=== PATIENT | male | born 1995 | race American Indian/Alaskan Native ===

== ENCOUNTER 2017-01-04 13:31 | Emergency (ER) | payer SELFPAY ==
[2017-01-04 13:53] VITALS: BP 109/67
--- NOTE | 2017-01-04 15:53 | Emergency Department Report ---
ED Male HPI - General Chief complaint: Urogenital-Male Stated complaint: POSS STD Time Seen by Provider: 01/04/17 15:40 Source: patient Mode of arrival: Ambulatory Limitations: No Limitations - History of Present Illness Initial comments: Patient is a 21-year-old male who presents to ED with complaints of rectal pain for the past 2 days. Patient also reports that he was be checked for possible STDs. Denies any anal sex. Denies any dysuria, hematuria, urethral discharge or any other symptoms. MD Complaint: other (rectal pain) -: Sudden Radiation: none Severity: moderate Severity scale (0 -10): 7 Quality: aching Consistency: constant Improves with: none Worsens with: none denies other symptoms. denies: discharge, swelling, mass, rash, urinary retention, blood in urine, dysuria, fever, nausea/vomiting, incontinence - Related Data Previous Rx's Medication Instructions Recorded Last Taken Type Sulfamethoxazole/Trimethoprim 1 each PO BID #20 tablet 12/28/15 Unknown Rx [Bactrim DS TAB] Benzocaine [Americaine] 28 gm TP BID #1 oint...g. 01/04/17 Unknown Rx Hydrocortisone [Anucort-HC SUPPOS] 25 mg RC BID #20 supp.rect 01/04/17 Unknown Rx Allergies Allergy/AdvReac Type Severity Reaction Status Date / Time trazodone Allergy Swelling Verified 12/25/15 17:55 ED Review of Systems ROS: Stated complaint: POSS STD Other details as noted in HPI Constitutional: denies: chills, fever Eyes: denies: eye pain, eye discharge, vision change ENT: denies: ear pain, throat pain Respiratory: denies: cough, shortness of breath, wheezing Cardiovascular: denies: chest pain, palpitations Gastrointestinal: as per HPI, other (rectal pain ) Genitourinary: as per HPI. denies: urgency, dysuria, frequency, hematuria, discharge, testicular pain, testicular mass, other Skin: denies: rash, lesions Neurological: denies: headache, weakness, paresthesias Psychiatric: denies: anxiety, depression ED Past Medical Hx - Past Medical History Previous Medical History?: Yes Hx Psychiatric Treatment: Yes (bi-polar) - Surgical History Past Surgical History?: Yes Additional Surgical History: nasal surgery - Social History Smoking Status: Current Every Day Smoker - Medications Home Medications: Home Medications Medication Instructions Recorded Confirmed Last Taken Type Sulfamethoxazole/Trimethoprim 1 each PO BID #20 tablet 12/28/15 Unknown Rx [Bactrim DS TAB] Benzocaine [Americaine] 28 gm TP BID #1 oint...g. 01/04/17 Unknown Rx Hydrocortisone [Anucort-HC SUPPOS] 25 mg RC BID #20 supp.rect 01/04/17 Unknown Rx ED Physical Exam - General Limitations: No Limitations General appearance: alert, in no apparent distress - Head Head exam: Present: atraumatic, normocephalic - Eye Eye exam: Present: normal appearance - Respiratory Respiratory exam: Present: normal lung sounds bilaterally. Absent: respiratory distress - Cardiovascular Cardiovascular Exam: Present: regular rate, normal rhythm. Absent: systolic murmur, diastolic murmur, rubs, gallop - GI/Abdominal GI/Abdominal exam: Present: soft, normal bowel sounds. Absent: distended, tenderness, guarding, rebound, rigid - Rectal Rectal exam: Present: normal rectal tone, hemorrhoids (external hemorrhoid noted ), tenderness - Neurological Exam Neurological exam: Present: alert, oriented X3 - Psychiatric Psychiatric exam: Present: normal affect, normal mood ED Course Vital Signs 01/04/17 13:49 Temperature 98.4 F Pulse Rate 53 L Respiratory 18 Rate Blood Pressure 109/67 O2 Sat by Pulse 53 L Oximetry ED Medical Decision Making - Medical Decision Making Patient is resting comfortably in the room. Vital signs within normal range. Rectal exam reveals external hemorrhoid. No bleeding or discharge noted at this time. We'll give benzocaine and Anusol to go home with. - Differential Diagnosis external hemorrhoid, rectal pain, internal hemorrhoid, urethritis. Critical care attestation.: If time is entered above; I have spent that time in minutes in the direct care of this critically ill patient, excluding procedure time. ED Disposition Clinical Impression: External hemorrhoids Disposition: DC-01 TO HOME OR SELFCARE Is pt being admited?: No Does the pt Need Aspirin: No Condition: Stable Instructions: Hemorrhoids (ED), Rectal Bleeding (ED), Hemorrhoidectomy (ED) Prescriptions: Benzocaine [Americaine] 28 gm TP BID #1 oint...g. Hydrocortisone [Anucort-HC SUPPOS] 25 mg RC BID #20 supp.rect Referrals: PRIMARY CARE, [Primary Care Provider] - 3-5 Days Time of Disposition: 16:08
== END 2017-01-04 16:16 | disposition home or self-care (01) ==
LOC: ED 13:31
DX: K64.4 Residual hemorrhoidal skin tags (principal); F31.9 Bipolar disorder, unspecified; F17.200 Nicotine dependence, unspecified, uncomplicated; Z88.8 Allergy status to other drugs, medicaments and biological substances
CPT/HCPCS: 87591; 99282